=== PATIENT | male | born 1985 | race Caucasian/White ===

== ENCOUNTER 2017-12-02 17:57 | Emergency (ER) | payer SELFPAY ==
[~2017-12-02] VITALS: Ht 172.7 cm; Wt 91.0 kg
[2017-12-02 19:48] VITALS: BP 140/96
== END 2017-12-02 19:50 | disposition home or self-care (01) ==
LOC: ER 17:57
DX: Z00.00 Encounter for general adult medical examination without abnormal findings (principal)
CPT/HCPCS: 99283